=== PATIENT | female | born 1965 | race African-American/Black ===

== ENCOUNTER 2020-02-20 10:09 | Inpatient (IN) | payer MEDICARE, MEDICAID ==
[~2020-02-20] VITALS: Ht 167.6 cm; Wt 81.3 kg
[2020-02-20] MEDS ORDERED: HYDR200T83 PO (11:01)
[2020-02-20] MEDS ORDERED: ATOR40TA28 PO (11:01)
[2020-02-20] MEDS ORDERED: GABA-1181 PO (11:01)
[2020-02-20] MEDS ORDERED: LEVO50 PO (11:01)
[2020-02-20] MEDS ORDERED: LORA-703 PO (11:01)
[2020-02-20] MEDS ORDERED: MIRT30 PO (11:01)
[2020-02-20] MEDS ORDERED: BENZ0.5T44 PO (11:01)
[2020-02-20] MEDS ORDERED: FAMO20 PO (11:01)
[2020-02-20] MEDS ORDERED: SERT100T12 PO (11:01)
[2020-02-20] MEDS ORDERED: RISP2TAB23 PO (11:01)
[2020-02-20] MEDS ORDERED: MELO-107 PO (11:01)
[2020-02-20] MEDS ORDERED: SODIUM CHLORIDE 0.9% 1,000 ML IV ONE (11:15)
[2020-02-20 11:19] LABS: BASOPHILS % (AUTO) 0.9 % (0.0-2.0); EOSINOPHILS % (AUTO) 0.5 % (1.0-6.0); HEMATOCRIT 41.9 % (36-46); HEMOGLOBIN 14.1 g/dL (12.0-16.0); LYMPHOCYTES # (AUTO) 2.8 K/uL (1.0-4.8); LYMPHOCYTES % (AUTO) 37.2 % (22.0-44.0); MEAN CORPUSCULAR HEMOGLOBIN 31.7 pg (26.0-34.0); MEAN CORPUSCULAR HGB CONC 33.6 G/dL (31.0-37.0); MEAN CORPUSCULAR VOLUME 94 fL (80-100); MONOCYTES # (AUTO) 0.8 K/uL (0.1-1.0); MONOCYTES % (AUTO) 10.3 % (2.0-9.0); NEUTROPHILS # (AUTO) 3.9 K/uL (1.8-7.7); NEUTROPHILS % (AUTO) 51.1 % (40.0-70.0); PLATELET COUNT (AUTO) 330 K/uL (150-450); RED BLOOD CELL COUNT(AUTO) 4.44 MIL/uL (4.00-5.20); RED CELL DISTRIBUTION WIDTH 14.2 % (11.5-14.5)
[2020-02-20 11:35] LABS: ANION GAP 10 mmol/L (8-16); CARBON DIOXIDE 32 mmol/L (22-29); CHLORIDE 104 mmol/L (98-107); GLOMERULAR FILTR. RATE CALC > 60 mL/min (>60); GLUCOSE,RANDOM 124 mg/dL (70-110); POTASSIUM 3.2 mmol/L (3.5-5.1); SODIUM SERUM 146 mmol/L (136-145); UREA NITROGEN, BLOOD 5 mg/dL (7-18)
[2020-02-20 11:36] LABS: ALANINE AMINOTRANSFERASE 13 U/L (12-78); ALBUMIN 3.5 g/dL (3.4-5.0); ALKALINE PHOSPHATASE 170 U/L (46-116); ASPARTATE AMINOTRANSFERASE 8 U/L (15-37); BILIRUBIN,TOTAL 0.3 mg/dL (0.1-1.0); TOTAL PROTEIN, SERUM 8.2 g/dL (6.4-8.2)
[2020-02-20] MEDS ORDERED: POTASSIUM CHLORIDE 20 MEQ ER TABLET PO ONE (12:15)
[2020-02-20 13:09] LABS: APPEARANCE,URINE CLEAR (CLEAR); BILIRUBIN,URINE NEGATIVE (NEGATIVE); GLUCOSE, URINE (UA) NEGATIVE (NEGATIVE); KETONES,URINE NEGATIVE (NEGATIVE); LEUKOCYTE ESTERASE ,URINE NEGATIVE (NEGATIVE); NITRATE,URINE NEGATIVE (NEGATIVE); OCCULT BLOOD,URINE NEGATIVE (NEGATIVE); PH,URINE 6.5 (5.0-8.0); PROTEIN,URINE NEGATIVE (NEGATIVE); UROBILINOGEN,URINE 0.2 mg/dL (<=1.0)
[2020-02-20 13:14] LABS: AMPHET/METH SCREEN,URINE NEGATIVE (NEGATIVE); BARBITURATE SCREEN, URINE NEGATIVE (NEGATIVE); BENZODIAZEPINES SCREEN,URINE NEGATIVE (NEGATIVE); CANNABINOID SCREEN,URINE NEGATIVE (NEGATIVE); COCAINE SCREEN,URINE NEGATIVE (NEGATIVE); METHADONE SCREEN, URINE NEGATIVE (NEGATIVE); OPIATE SCREEN,URINE NEGATIVE (NEGATIVE)
[2020-02-20 13:15] LABS: PHENCYCLIDINE SCREEN,URINE NEGATIVE (NEGATIVE)
[2020-02-20] MEDS ORDERED: LORazepam 2 MG TABLET PO PRN (13:15)
[2020-02-20] MEDS ORDERED: ZOLPIDEM TARTRATE 10 MG TABLET PO PRN (13:15)
[2020-02-20] MEDS ORDERED: HALOPERIDOL 5 MG TABLET PO PRN (13:15)
[2020-02-20 14:18] LABS: BACTERIA,URINE None Seen /HPF (None Seen); RBC,URINE None Seen /HPF (0-2); SQUAMOUS EPITHELIAL CELL,UR Few /LPF (None Seen); WBC,URINE None Seen /HPF (0-5)
[2020-02-20 14:45] VITALS: BP 176/99
[2020-02-20 16:29] VITALS: BP 161/84
[2020-02-20] MEDS: AmLODIPine BESYLATE 5 MG TABLET PO SCH (18:57)
[2020-02-21 00:10] VITALS: BP 124/86
[2020-02-21 07:51] LABS: POTASSIUM 3.8 mmol/L (3.5-5.1)
[2020-02-21 08:00] VITALS: BP 143/87
[2020-02-21] MEDS: AmLODIPine BESYLATE 5 MG TABLET PO SCH (08:06)
[2020-02-21] MEDS ORDERED: ONDANSETRON HCL 4 MG TABLET PO PRN (08:15)
[2020-02-21] MEDS ORDERED: IBUPROFEN 400 MG TABLET PO PRN (08:15)
[2020-02-21] MEDS ORDERED: CloNIDine HCL 0.1 MG TABLET PO PRN (08:15)
[2020-02-21] MEDS ORDERED: MAGNESIUM HYDROXIDE SUSPENSION 30 ML UDCUP PO PRN (08:15)
[2020-02-21] MEDS ORDERED: ACETAMINOPHEN 325 MG TABLET PO PRN (08:15)
[2020-02-21] MEDS ORDERED: LOPERAMIDE HCL 2 MG CAPSULE PO PRN (08:15)
[2020-02-21] MEDS ORDERED: PETROLATUM,WHITE 28 GM JELLY TP PRN (08:15)
[2020-02-21] MEDS ORDERED: DOCUSATE SODIUM 100 MG CAPSULE PO PRN (08:15)
[2020-02-21] MEDS ORDERED: ALBUTEROL SULFATE HFA 90 MCG/PUFF 8 GM INHALER IH PRN (08:15)
[2020-02-21] MEDS ORDERED: NICOTINE 14 MG/24 HOUR PATCH TD PRN (08:15)
[2020-02-21] MEDS ORDERED: GuaiFENesin/D-METHORPHAN [SUGAR-FREE] 200-20MG/10 ML SYRUP UDCUP PO PRN (08:15)
[2020-02-21] MEDS: FAMOTIDINE 20 MG TABLET PO SCH ×3 (09:00→16:15)
[2020-02-21] MEDS: MELOXICAM 7.5 MG TABLET PO SCH ×2 (09:00→09:14)
[2020-02-21] MEDS: ATORVASTATIN CALCIUM 40 MG TABLET PO SCH ×2 (09:00→09:14)
[2020-02-21] MEDS: LORATADINE 10 MG TABLET PO SCH (11:00)
[2020-02-21 17:00] VITALS: BP 143/78
[2020-02-21] MEDS: GABAPENTIN 300 MG CAPSULE PO SCH (20:05)
[2020-02-21] MEDS: RisperiDONE 2 MG TABLET PO SCH (20:05)
[2020-02-21] MEDS: MIRTAZAPINE 30 MG TABLET PO SCH (20:05)
[2020-02-22] MEDS: LEVOTHYROXINE SODIUM 50 MCG TABLET PO SCH (06:46)
[2020-02-22] MEDS: MELOXICAM 7.5 MG TABLET PO SCH (06:47)
[2020-02-22] MEDS: FAMOTIDINE 20 MG TABLET PO SCH ×2 (08:31→16:59)
[2020-02-22] MEDS: AmLODIPine BESYLATE 5 MG TABLET PO SCH (08:31)
[2020-02-22] MEDS: LORATADINE 10 MG TABLET PO SCH (08:32)
[2020-02-22] MEDS: SERTRALINE HCL 100 MG TABLET PO SCH (08:32)
[2020-02-22] MEDS: ATORVASTATIN CALCIUM 40 MG TABLET PO SCH (08:32)
[2020-02-22 11:47] VITALS: BP 141/82
[2020-02-22 17:11] VITALS: BP 121/83
[2020-02-22] MEDS: RisperiDONE 2 MG TABLET PO SCH (20:14)
[2020-02-22] MEDS: MIRTAZAPINE 30 MG TABLET PO SCH (20:14)
[2020-02-22] MEDS: GABAPENTIN 300 MG CAPSULE PO SCH (20:17)
[2020-02-23] MEDS: MELOXICAM 7.5 MG TABLET PO SCH (06:49)
[2020-02-23] MEDS: LEVOTHYROXINE SODIUM 50 MCG TABLET PO SCH (06:49)
[2020-02-23] MEDS: AmLODIPine BESYLATE 5 MG TABLET PO SCH (08:29)
[2020-02-23] MEDS: LORATADINE 10 MG TABLET PO SCH (08:30)
[2020-02-23] MEDS: ATORVASTATIN CALCIUM 40 MG TABLET PO SCH (08:30)
[2020-02-23] MEDS: FAMOTIDINE 20 MG TABLET PO SCH ×2 (08:31→16:29)
[2020-02-23] MEDS: SERTRALINE HCL 100 MG TABLET PO SCH (08:31)
[2020-02-23 09:14] VITALS: BP 129/87
[2020-02-23] MEDS: MAG HYDROX/AL HYDROX/SIMETH ES 30 ML SUSPENSION UDCUP PO PRN (15:13)
[2020-02-23 16:23] VITALS: BP 132/65
[2020-02-23] MEDS: GABAPENTIN 300 MG CAPSULE PO SCH (20:12)
[2020-02-23] MEDS: MIRTAZAPINE 30 MG TABLET PO SCH (20:12)
[2020-02-23] MEDS: RisperiDONE 2 MG TABLET PO SCH (20:12)
[2020-02-23 21:21] VITALS: BP 128/77
[2020-02-24] MEDS: MELOXICAM 7.5 MG TABLET PO SCH (07:09)
[2020-02-24] MEDS: LEVOTHYROXINE SODIUM 50 MCG TABLET PO SCH (07:09)
[2020-02-24 08:00] VITALS: BP 137/84
[2020-02-24] MEDS: AmLODIPine BESYLATE 5 MG TABLET PO SCH (09:00)
[2020-02-24] MEDS: LORATADINE 10 MG TABLET PO SCH (09:00)
[2020-02-24] MEDS: SERTRALINE HCL 100 MG TABLET PO SCH (09:00)
[2020-02-24] MEDS: ATORVASTATIN CALCIUM 40 MG TABLET PO SCH (09:00)
[2020-02-24] MEDS: FAMOTIDINE 20 MG TABLET PO SCH ×2 (09:00→16:11)
[2020-02-24 16:00] VITALS: BP 111/62
[2020-02-24] MEDS: MAG HYDROX/AL HYDROX/SIMETH ES 30 ML SUSPENSION UDCUP PO PRN (18:54)
[2020-02-24] MEDS: RisperiDONE 2 MG TABLET PO SCH (20:28)
[2020-02-24] MEDS: MIRTAZAPINE 30 MG TABLET PO SCH (20:28)
[2020-02-24] MEDS: GABAPENTIN 300 MG CAPSULE PO SCH (20:28)
[2020-02-25] MEDS: MELOXICAM 7.5 MG TABLET PO SCH (06:34)
[2020-02-25] MEDS: LEVOTHYROXINE SODIUM 50 MCG TABLET PO SCH (06:34)
[2020-02-25 08:00] VITALS: BP 128/75
[2020-02-25] MEDS: AmLODIPine BESYLATE 5 MG TABLET PO SCH (08:36)
[2020-02-25] MEDS: ATORVASTATIN CALCIUM 40 MG TABLET PO SCH (08:36)
[2020-02-25] MEDS: FAMOTIDINE 20 MG TABLET PO SCH ×2 (08:37→17:33)
[2020-02-25] MEDS: SERTRALINE HCL 100 MG TABLET PO SCH (08:37)
[2020-02-25] MEDS: LORATADINE 10 MG TABLET PO SCH (08:37)
[2020-02-25 17:02] VITALS: BP 147/72
[2020-02-25] MEDS: GABAPENTIN 300 MG CAPSULE PO SCH (21:21)
[2020-02-25] MEDS: MIRTAZAPINE 30 MG TABLET PO SCH (21:21)
[2020-02-25] MEDS: RisperiDONE 2 MG TABLET PO SCH (21:21)
[2020-02-26] MEDS: LEVOTHYROXINE SODIUM 50 MCG TABLET PO SCH (07:22)
[2020-02-26] MEDS: MELOXICAM 7.5 MG TABLET PO SCH (07:23)
[2020-02-26 08:40] VITALS: BP 132/72
[2020-02-26] MEDS: FAMOTIDINE 20 MG TABLET PO SCH ×2 (10:31→16:52)
[2020-02-26] MEDS: SERTRALINE HCL 100 MG TABLET PO SCH (10:31)
[2020-02-26] MEDS: ATORVASTATIN CALCIUM 40 MG TABLET PO SCH (10:31)
[2020-02-26] MEDS: LORATADINE 10 MG TABLET PO SCH (10:31)
[2020-02-26] MEDS: AmLODIPine BESYLATE 5 MG TABLET PO SCH (10:32)
[2020-02-26 16:00] VITALS: BP 124/77
[2020-02-26] MEDS: GABAPENTIN 300 MG CAPSULE PO SCH (20:34)
[2020-02-26] MEDS: RisperiDONE 2 MG TABLET PO SCH (20:34)
[2020-02-26] MEDS: MIRTAZAPINE 30 MG TABLET PO SCH (20:34)
[2020-02-27] MEDS: MELOXICAM 7.5 MG TABLET PO SCH (06:53)
[2020-02-27] MEDS: LEVOTHYROXINE SODIUM 50 MCG TABLET PO SCH (06:53)
[2020-02-27] MEDS: FAMOTIDINE 20 MG TABLET PO SCH ×2 (08:49→16:10)
[2020-02-27] MEDS: LORATADINE 10 MG TABLET PO SCH (08:49)
[2020-02-27] MEDS: ATORVASTATIN CALCIUM 40 MG TABLET PO SCH (08:49)
[2020-02-27] MEDS: SERTRALINE HCL 100 MG TABLET PO SCH (08:49)
[2020-02-27] MEDS: AmLODIPine BESYLATE 5 MG TABLET PO SCH (08:50)
[2020-02-27 09:21] VITALS: BP 135/67
[2020-02-27 12:05] VITALS: BP 135/67
[2020-02-27 16:00] VITALS: BP 117/72
[2020-02-27] MEDS: RisperiDONE 2 MG TABLET PO SCH (20:17)
[2020-02-27] MEDS: GABAPENTIN 300 MG CAPSULE PO SCH (20:17)
[2020-02-27] MEDS: MIRTAZAPINE 30 MG TABLET PO SCH (20:17)
[2020-02-28 02:51] VITALS: BP 128/68
[2020-02-28] MEDS: MELOXICAM 7.5 MG TABLET PO SCH (06:32)
[2020-02-28] MEDS: LEVOTHYROXINE SODIUM 50 MCG TABLET PO SCH (06:32)
[2020-02-28 08:00] VITALS: BP 141/87
[2020-02-28] MEDS: AmLODIPine BESYLATE 5 MG TABLET PO SCH (08:41)
[2020-02-28] MEDS: ATORVASTATIN CALCIUM 40 MG TABLET PO SCH (08:41)
[2020-02-28] MEDS: FAMOTIDINE 20 MG TABLET PO SCH ×2 (08:41→16:42)
[2020-02-28] MEDS: LORATADINE 10 MG TABLET PO SCH (08:42)
[2020-02-28] MEDS: SERTRALINE HCL 100 MG TABLET PO SCH (08:42)
[2020-02-28 16:00] VITALS: BP 135/70
[2020-02-28] MEDS: GABAPENTIN 300 MG CAPSULE PO SCH (20:03)
[2020-02-28] MEDS: RisperiDONE 2 MG TABLET PO SCH (20:03)
[2020-02-28] MEDS: MIRTAZAPINE 30 MG TABLET PO SCH (20:03)
[2020-02-29] MEDS: MELOXICAM 7.5 MG TABLET PO SCH (06:58)
[2020-02-29] MEDS: LEVOTHYROXINE SODIUM 50 MCG TABLET PO SCH (06:58)
[2020-02-29 08:00] VITALS: BP 122/76
[2020-02-29] MEDS: ATORVASTATIN CALCIUM 40 MG TABLET PO SCH (09:01)
[2020-02-29] MEDS: LORATADINE 10 MG TABLET PO SCH (09:01)
[2020-02-29] MEDS: AmLODIPine BESYLATE 5 MG TABLET PO SCH (09:01)
[2020-02-29] MEDS: FAMOTIDINE 20 MG TABLET PO SCH (09:01)
[2020-02-29] MEDS: SERTRALINE HCL 100 MG TABLET PO SCH (09:01)
[2020-02-29] MEDS ORDERED: AMLO5TAB9 PO (10:41)
== END 2020-02-29 15:00 | disposition home or self-care (01) | DRG 885 ==
LOC: EMS 10:11 → 3EX 13:12
PROVIDERS: ADMIT Psychiatry & Neurology Child & Adolescent Psychiatry; ATTEND Psychiatry & Neurology Child & Adolescent Psychiatry
DX: F25.0 Schizoaffective disorder, bipolar type (principal); E87.0 Hyperosmolality and hypernatremia; E03.9 Hypothyroidism, unspecified; E87.6 Hypokalemia; K21.9 Gastro-esophageal reflux disease without esophagitis; M19.90 Unspecified osteoarthritis, unspecified site; Z59.0 Homelessness; E78.5 Hyperlipidemia, unspecified
CPT/HCPCS: 84132; G0378; G0480; J7030

== ENCOUNTER 2020-07-19 16:25 | Emergency (ER) | payer OTHER ==
[~2020-07-19] VITALS: Ht 170.2 cm; Wt 104.5 kg
[~2020-07-19 16:25] MED LIST: AMLO-257 PO; ATOR40TA28 PO; FAMO20 PO; GABA-1181 PO; LEVO50 PO; LORA-703 PO; MELO-107 PO; MIRT30 PO; RISP2TAB45 PO; SERT100T12 PO
[2020-07-19 18:14] LABS: APPEARANCE,URINE CLEAR (CLEAR); BILIRUBIN,URINE NEGATIVE (NEGATIVE); GLUCOSE, URINE (UA) NEGATIVE (NEGATIVE); KETONES,URINE NEGATIVE (NEGATIVE); LEUKOCYTE ESTERASE ,URINE NEGATIVE (NEGATIVE); NITRATE,URINE NEGATIVE (NEGATIVE); OCCULT BLOOD,URINE NEGATIVE (NEGATIVE); PH,URINE 5.5 (5.0-8.0); PROTEIN,URINE NEGATIVE (NEGATIVE); UROBILINOGEN,URINE 0.2 mg/dL (<=1.0)
[2020-07-19 18:50] LABS: AMPHET/METH SCREEN,URINE NEGATIVE (NEGATIVE); BARBITURATE SCREEN, URINE NEGATIVE (NEGATIVE); BENZODIAZEPINES SCREEN,URINE NEGATIVE (NEGATIVE); CANNABINOID SCREEN,URINE NEGATIVE (NEGATIVE); COCAINE SCREEN,URINE NEGATIVE (NEGATIVE); METHADONE SCREEN, URINE NEGATIVE (NEGATIVE); OPIATE SCREEN,URINE NEGATIVE (NEGATIVE); PHENCYCLIDINE SCREEN,URINE NEGATIVE (NEGATIVE)
[2020-07-19 19:11] LABS: COVID AG,FIA SOURCE NASOPHARYNGEAL
[2020-07-19 19:12] LABS: BASOPHILS % (AUTO) 1.2 % (0.0-2.0); EOSINOPHILS % (AUTO) 0.9 % (1.0-6.0); HEMATOCRIT 40.7 % (36-46); HEMOGLOBIN 13.6 g/dL (12.0-16.0); LYMPHOCYTES % (AUTO) 43.1 % (22.0-44.0); MEAN CORPUSCULAR HEMOGLOBIN 31.3 pg (26.0-34.0); MEAN CORPUSCULAR HGB CONC 33.5 G/dL (31.0-37.0); MEAN CORPUSCULAR VOLUME 93 fL (80-100); MONOCYTES # (AUTO) 0.9 K/uL (0.1-1.0); MONOCYTES % (AUTO) 9.5 % (2.0-9.0); NEUTROPHILS # (AUTO) 4.2 K/uL (1.8-7.7); NEUTROPHILS % (AUTO) 45.3 % (40.0-70.0); PLATELET COUNT (AUTO) 309 K/uL (150-450); RED BLOOD CELL COUNT(AUTO) 4.36 MIL/uL (4.00-5.20); RED CELL DISTRIBUTION WIDTH 14.2 % (11.5-14.5)
[2020-07-19 19:39] LABS: ANION GAP 10 mmol/L (8-16); CALCIUM, TOTAL 9.1 mg/dL (8.8-10.5); CARBON DIOXIDE 26 mmol/L (22-29); CHLORIDE 105 mmol/L (98-107); CREATININE 0.83 mg/dL (0.60-1.30); GLOMERULAR FILTR. RATE CALC > 60 mL/min (>60); GLUCOSE,RANDOM 104 mg/dL (70-110); POTASSIUM 3.2 mmol/L (3.5-5.1); SODIUM SERUM 141 mmol/L (136-145); UREA NITROGEN, BLOOD 10 mg/dL (7-18)
[2020-07-19 19:54] LABS: ALANINE AMINOTRANSFERASE 9 U/L (12-78); ALBUMIN 2.9 g/dL (3.4-5.0); ALKALINE PHOSPHATASE 142 U/L (46-116); ASPARTATE AMINOTRANSFERASE 11 U/L (15-37); BILIRUBIN,TOTAL 0.2 mg/dL (0.1-1.0); FREE T4 (FREE THYROXINE) 0.86 ng/dL (0.76-1.46); TOTAL PROTEIN, SERUM 7.2 g/dL (6.4-8.2)
[2020-07-19] MEDS ORDERED: ACETAMINOPHEN 500 MG TABLET PO ONE (20:15)
[2020-07-19] MEDS: POTASSIUM CHLORIDE 20 MEQ ER TABLET PO ONE ×2 (20:22→20:31)
[2020-07-19] MEDS ORDERED: RisperiDONE 1 MG TABLET PO ONE (21:15)
[2020-07-19] MEDS ORDERED: LORazepam 1 MG TABLET PO ONE (21:15)
[2020-07-19 22:11] VITALS: BP 136/84
== END 2020-07-19 22:33 | disposition home or self-care (01) ==
LOC: EMS 16:27
DX: F20.9 Schizophrenia, unspecified (principal); F31.9 Bipolar disorder, unspecified; I10 Essential (primary) hypertension; E78.00 Pure hypercholesterolemia, unspecified; E03.9 Hypothyroidism, unspecified; F17.210 Nicotine dependence, cigarettes, uncomplicated; Z79.899 Other long term (current) drug therapy; Z20.828 Contact with and (suspected) exposure to other viral communicable diseases
CPT/HCPCS: 36415; 71045; 80053; 80307; 81003; 84439; 84443; 85025; 87426; 99284; 99406; G0480